=== PATIENT | male | born 1980 | race Caucasian/White ===

== ENCOUNTER 2017-06-04 13:27 | Inpatient (IN) | payer BC, OTHER ==
[2017-06-04] MEDS ORDERED: SODIUM CHLORIDE 0.9% 1,000 ML IV STA ×2 (13:34)
[2017-06-04] MEDS ORDERED: ONDANSETRON 4 MG/2 ML VIAL IVP STA (13:34)
[2017-06-04] MEDS ORDERED: SODIUM CHLORIDE 0.9% 500 ML IV STA ×2 (13:34→16:28)
[2017-06-04 13:36] LABS: Glucose,Whole Blood 148 mg/dL (75-99)
--- NOTE | 2017-06-04 13:36 | ED ---
General Adult HPI - General Chief complaint: Seizure Stated complaint: Seizure Time Seen by Provider: 06/04/17 13:34 Source: patient, family, RN notes reviewed, old records reviewed Mode of arrival: wheelchair Limitations: no limitations - History of Present Illness Initial comments: This is a 36-year-old male coming in for evaluation regarding severe alteration of mental status, possible seizure, not acting appropriately. Patient's brought in by friend who is a coworker, they work [employer], and was at work today when patient began to act this way. Otherwise patient unable to give history, other history is obtained from patient's chart - Related Data Home Medications Medication Instructions Recorded Confirmed No Known Home Medications [No 06/04/17 06/04/17 Known Home Medications] Allergies Allergy/AdvReac Type Severity Reaction Status Date / Time lactose AdvReac Nausea & Verified 06/04/17 14:22 Vomiting & Diarrhea Review of Systems ROS Statement: Those systems with pertinent positive or pertinent negative responses have been documented in the HPI. ROS Other: All systems not noted in ROS Statement are negative. Past Medical History Past Medical History: No Reported History Additional Past Medical History / Comment(s): fracture skull with hematomas, dislocated rt hip History of Any Multi-Drug Resistant Organisms: None Reported Past Surgical History: Orthopedic Surgery Additional Past Surgical History / Comment(s): clavicle repair Past Psychological History: No Psychological Hx Reported Smoking Status: Never smoker Past Alcohol Use History: None Reported Past Drug Use History: Marijuana General Exam Limitations: altered mental status General appearance: alert, appears intoxicated, anxious, in distress Head exam: Present: atraumatic, normocephalic, normal inspection Eye exam: Present: normal appearance, PERRL, EOMI. Absent: scleral icterus, conjunctival injection, periorbital swelling ENT exam: Present: mucous membranes dry Neck exam: Present: normal inspection. Absent: tenderness, meningismus, lymphadenopathy Respiratory exam: Present: normal lung sounds bilaterally. Absent: respiratory distress, wheezes, rales, rhonchi, stridor Cardiovascular Exam: Present: normal rhythm, tachycardia, normal heart sounds. Absent: systolic murmur, diastolic murmur, rubs, gallop, clicks GI/Abdominal exam: Present: soft, normal bowel sounds. Absent: distended, tenderness, guarding, rebound, rigid Extremities exam: Present: normal inspection, full ROM, normal capillary refill. Absent: tenderness, pedal edema, joint swelling, calf tenderness Back exam: Present: normal inspection Neurological exam: Present: alert, oriented X3, CN II-XII intact Psychiatric exam: Present: normal affect, normal mood Skin exam: Present: warm, dry, intact, normal color. Absent: rash Course Vital Signs 06/04/17 06/04/17 06/04/17 13:29 13:48 14:23 Temperature 97.0 F L Pulse Rate 101 H 103 H 87 Respiratory 18 18 17 Rate Blood Pressure 184/98 149/70 125/68 O2 Sat by Pulse 98 97 99 Oximetry 06/04/17 15:14 Temperature 98.2 F Pulse Rate 92 Respiratory 18 Rate Blood Pressure 112/58 O2 Sat by Pulse 99 Oximetry - Reevaluation(s) Reevaluation #1: 06/04/17 16:29 Initially patient is feeling well, recovered from seizure well alert and oriented, vital signs are improving family that bedside unable to give any influence or opinion to help case. Reevaluation #2: 06/04/17 16:30 At this point patient has had a second seizure, stopped with Ativan, patient returning to baseline. EKG Findings - EKG Comments: EKG Findings:: EKG shows sinus tachycardia rate of 109, AR 140, QRS 90, QTc 476 Medical Decision Making - Medical Decision Making 36 male here for evaluation of new-onset seizure history of traumatic brain injury, 2 seizures within a short period of time, severe altered mental status. Patient be admitted for neurological evaluation - Lab Data Result diagrams: 06/04/17 13:35 06/04/17 15:57 Lab Results 06/04/17 06/04/17 06/04/17 Range/Units 13:32 13:35 13:35 WBC (3.8-10.6) k/uL RBC (4.30-5.90) m/uL Hgb (13.0-17.5) gm/dL Hct (39.0-53.0) % MCV (80.0-100.0) fL MCH (25.0-35.0) pg MCHC (31.0-37.0) g/dL RDW (11.5-15.5) % Plt Count (150-450) k/uL Neutrophils % % Lymphocytes % % Monocytes % % Eosinophils % % Basophils % % Neutrophils # (1.3-7.7) k/uL Lymphocytes # (1.0-4.8) k/uL Monocytes # (0-1.0) k/uL Eosinophils # (0-0.7) k/uL Basophils # (0-0.2) k/uL PT (9.0-12.0) sec INR (<1.2) APTT (22.0-30.0) sec VBG pH (7.31-7.41) VBG pCO2 (37-51) mmHg VBG HCO3 (24-28) mmol/L Sodium 143 (137-145) mmol/L Potassium 4.2 (3.5-5.1) mmol/L Chloride 104 (98-107) mmol/L Carbon Dioxide 14 L (22-30) mmol/L Anion Gap 25 mmol/L BUN 16 (9-20) mg/dL Creatinine 0.93 (0.66-1.25) mg/dL Est GFR (MDRD) Af Amer >60 (>60 ml/min/1.73 sqM) Est GFR (MDRD) Non-Af >60 (>60 ml/min/1.73 sqM) Glucose 119 H (74-99) mg/dL POC Glucose (mg/dL) 148 H (75-99) mg/dL POC Glu Door Repairman ID Abran Krishnamurthy Plasma Lactic Acid Alfredo (0.7-2.0) mmol/L Calcium 9.8 (8.4-10.2) mg/dL Phosphorus 4.0 (2.5-4.5) mg/dL Magnesium 2.2 (1.6-2.3) mg/dL Total Bilirubin 0.9 (0.2-1.3) mg/dL AST 39 (17-59) U/L ALT 61 (21-72) U/L Alkaline Phosphatase 92 (38-126) U/L Total Creatine Kinase 218 H (55-170) U/L CK-MB (CK-2) 0.8 (0.0-2.4) ng/mL CK-MB (CK-2) Rel Index 0.4 Troponin I <0.012 (0.000-0.034) ng/mL Total Protein 9.3 H (6.3-8.2) g/dL Albumin 5.8 H (3.5-5.0) g/dL Lipase 63 (23-300) U/L TSH 2.100 (0.465-4.680) mIU/L Urine Color Urine Appearance (Clear) Urine pH (5.0-8.0) Ur Specific Loving (1.001-1.035) Urine Protein (Negative) Urine Glucose (UA) (Negative) Urine Ketones (Negative) Urine Blood (Negative) Urine Nitrite (Negative) Urine Bilirubin (Negative) Urine Urobilinogen (<2.0) mg/dL Ur Leukocyte Esterase (Negative) Urine WBC (0-5) /hpf Urine Bacteria (None) /hpf Urine Mucus (None) /hpf Salicylates <1.0 mg/dL Urine Opiates Screen (NotDetected) Ur Oxycodone Screen (NotDetected) Urine Methadone Screen (NotDetected) Ur Propoxyphene Screen (NotDetected) Acetaminophen <10.0 ug/mL Ur Barbiturates Screen (NotDetected) U Tricyclic Antidepress (NotDetected) Ur Phencyclidine Scrn (NotDetected) Ur Amphetamines Screen (NotDetected) U Methamphetamines Scrn (NotDetected) U Benzodiazepines Scrn (NotDetected) Urine Cocaine Screen (NotDetected) U Marijuana (THC) Screen (NotDetected) Serum Alcohol <10 mg/dL 06/04/17 06/04/17 06/04/17 Range/Units 13:35 13:35 13:35 WBC 11.3 H (3.8-10.6) k/uL RBC 5.19 (4.30-5.90) m/uL Hgb 16.6 (13.0-17.5) gm/dL Hct 48.8 (39.0-53.0) % MCV 93.9 (80.0-100.0) fL MCH 31.9 (25.0-35.0) pg MCHC 34.0 (31.0-37.0) g/dL RDW 13.8 (11.5-15.5) % Plt Count 250 (150-450) k/uL Neutrophils % 76 % Lymphocytes % 21 % Monocytes % 2 % Eosinophils % 0 % Basophils % 0 % Neutrophils # 8.5 H (1.3-7.7) k/uL Lymphocytes # 2.3 (1.0-4.8) k/uL Monocytes # 0.2 (0-1.0) k/uL Eosinophils # 0.0 (0-0.7) k/uL Basophils # 0.1 (0-0.2) k/uL PT 10.9 (9.0-12.0) sec INR 1.1 (<1.2) APTT 22.7 (22.0-30.0) sec VBG pH (7.31-7.41) VBG pCO2 (37-51) mmHg VBG HCO3 (24-28) mmol/L Sodium (137-145) mmol/L Potassium (3.5-5.1) mmol/L Chloride (98-107) mmol/L Carbon Dioxide (22-30) mmol/L Anion Gap mmol/L BUN (9-20) mg/dL Creatinine (0.66-1.25) mg/dL Est GFR (MDRD) Af Amer (>60 ml/min/1.73 sqM) Est GFR (MDRD) Non-Af (>60 ml/min/1.73 sqM) Glucose (74-99) mg/dL POC Glucose (mg/dL) (75-99) mg/dL POC Glu Door Repairman ID Plasma Lactic Acid Alfredo 11.3 H* (0.7-2.0) mmol/L Calcium (8.4-10.2) mg/dL Phosphorus (2.5-4.5) mg/dL Magnesium (1.6-2.3) mg/dL Total Bilirubin (0.2-1.3) mg/dL AST (17-59) U/L ALT (21-72) U/L Alkaline Phosphatase (38-126) U/L Total Creatine Kinase (55-170) U/L CK-MB (CK-2) (0.0-2.4) ng/mL CK-MB (CK-2) Rel Index Troponin I (0.000-0.034) ng/mL Total Protein (6.3-8.2) g/dL Albumin (3.5-5.0) g/dL Lipase (23-300) U/L TSH (0.465-4.680) mIU/L Urine Color Urine Appearance (Clear) Urine pH (5.0-8.0) Ur Specific Loving (1.001-1.035) Urine Protein (Negative) Urine Glucose (UA) (Negative) Urine Ketones (Negative) Urine Blood (Negative) Urine Nitrite (Negative) Urine Bilirubin (Negative) Urine Urobilinogen (<2.0) mg/dL Ur Leukocyte Esterase (Negative) Urine WBC (0-5) /hpf Urine Bacteria (None) /hpf Urine Mucus (None) /hpf Salicylates mg/dL Urine Opiates Screen (NotDetected) Ur Oxycodone Screen (NotDetected) Urine Methadone Screen (NotDetected) Ur Propoxyphene Screen (NotDetected) Acetaminophen ug/mL Ur Barbiturates Screen (NotDetected) U Tricyclic Antidepress (NotDetected) Ur Phencyclidine Scrn (NotDetected) Ur Amphetamines Screen (NotDetected) U Methamphetamines Scrn (NotDetected) U Benzodiazepines Scrn (NotDetected) Urine Cocaine Screen (NotDetected) U Marijuana (THC) Screen (NotDetected) Serum Alcohol mg/dL 06/04/17 06/04/17 06/04/17 Range/Units 13:35 14:26 15:57 WBC (3.8-10.6) k/uL RBC (4.30-5.90) m/uL Hgb (13.0-17.5) gm/dL Hct (39.0-53.0) % MCV (80.0-100.0) fL MCH (25.0-35.0) pg MCHC (31.0-37.0) g/dL RDW (11.5-15.5) % Plt Count (150-450) k/uL Neutrophils % % Lymphocytes % % Monocytes % % Eosinophils % % Basophils % % Neutrophils # (1.3-7.7) k/uL Lymphocytes # (1.0-4.8) k/uL Monocytes # (0-1.0) k/uL Eosinophils # (0-0.7) k/uL Basophils # (0-0.2) k/uL PT (9.0-12.0) sec INR (<1.2) APTT (22.0-30.0) sec VBG pH 7.18 L* (7.31-7.41) VBG pCO2 41 (37-51) mmHg VBG HCO3 15 L (24-28) mmol/L Sodium 140 (137-145) mmol/L Potassium 5.5 H (3.5-5.1) mmol/L Chloride 108 H (98-107) mmol/L Carbon Dioxide 21 L (22-30) mmol/L Anion Gap 11 mmol/L BUN 15 (9-20) mg/dL Creatinine 0.68 (0.66-1.25) mg/dL Est GFR (MDRD) Af Amer >60 (>60 ml/min/1.73 sqM) Est GFR (MDRD) Non-Af >60 (>60 ml/min/1.73 sqM) Glucose 91 (74-99) mg/dL POC Glucose (mg/dL) (75-99) mg/dL POC Glu Door Repairman ID Plasma Lactic Acid Alfredo (0.7-2.0) mmol/L Calcium 8.6 (8.4-10.2) mg/dL Phosphorus (2.5-4.5) mg/dL Magnesium (1.6-2.3) mg/dL Total Bilirubin 1.1 (0.2-1.3) mg/dL AST 44 (17-59) U/L ALT 49 (21-72) U/L Alkaline Phosphatase 82 (38-126) U/L Total Creatine Kinase (55-170) U/L CK-MB (CK-2) (0.0-2.4) ng/mL CK-MB (CK-2) Rel Index Troponin I (0.000-0.034) ng/mL Total Protein 7.8 (6.3-8.2) g/dL Albumin 4.8 (3.5-5.0) g/dL Lipase (23-300) U/L TSH (0.465-4.680) mIU/L Urine Color Yellow Urine Appearance Cloudy (Clear) Urine pH 5.0 (5.0-8.0) Ur Specific Loving 1.020 (1.001-1.035) Urine Protein Trace H (Negative) Urine Glucose (UA) Negative (Negative) Urine Ketones 2+ H (Negative) Urine Blood Negative (Negative) Urine Nitrite Negative (Negative) Urine Bilirubin Negative (Negative) Urine Urobilinogen <2.0 (<2.0) mg/dL Ur Leukocyte Esterase Negative (Negative) Urine WBC <1 (0-5) /hpf Urine Bacteria Rare H (None) /hpf Urine Mucus Rare H (None) /hpf Salicylates mg/dL Urine Opiates Screen Not Detected (NotDetected) Ur Oxycodone Screen Not Detected (NotDetected) Urine Methadone Screen Not Detected (NotDetected) Ur Propoxyphene Screen Not Detected (NotDetected) Acetaminophen ug/mL Ur Barbiturates Screen Not Detected (NotDetected) U Tricyclic Antidepress Not Detected (NotDetected) Ur Phencyclidine Scrn Not Detected (NotDetected) Ur Amphetamines Screen Not Detected (NotDetected) U Methamphetamines Scrn Not Detected (NotDetected) U Benzodiazepines Scrn Not Detected (NotDetected) Urine Cocaine Screen Not Detected (NotDetected) U Marijuana (THC) Screen Detected H (NotDetected) Serum Alcohol mg/dL 06/04/17 06/04/17 Range/Units 15:57 16:13 WBC (3.8-10.6) k/uL RBC (4.30-5.90) m/uL Hgb (13.0-17.5) gm/dL Hct (39.0-53.0) % MCV (80.0-100.0) fL MCH (25.0-35.0) pg MCHC (31.0-37.0) g/dL RDW (11.5-15.5) % Plt Count (150-450) k/uL Neutrophils % % Lymphocytes % % Monocytes % % Eosinophils % % Basophils % % Neutrophils # (1.3-7.7) k/uL Lymphocytes # (1.0-4.8) k/uL Monocytes # (0-1.0) k/uL Eosinophils # (0-0.7) k/uL Basophils # (0-0.2) k/uL PT (9.0-12.0) sec INR (<1.2) APTT (22.0-30.0) sec VBG pH 7.30 L (7.31-7.41) VBG pCO2 49 (37-51) mmHg VBG HCO3 24 (24-28) mmol/L Sodium (137-145) mmol/L Potassium (3.5-5.1) mmol/L Chloride (98-107) mmol/L Carbon Dioxide (22-30) mmol/L Anion Gap mmol/L BUN (9-20) mg/dL Creatinine (0.66-1.25) mg/dL Est GFR (MDRD) Af Amer (>60 ml/min/1.73 sqM) Est GFR (MDRD) Non-Af (>60 ml/min/1.73 sqM) Glucose (74-99) mg/dL POC Glucose (mg/dL) (75-99) mg/dL POC Glu Door Repairman ID Plasma Lactic Acid Alfredo 1.9 (0.7-2.0) mmol/L Calcium (8.4-10.2) mg/dL Phosphorus (2.5-4.5) mg/dL Magnesium (1.6-2.3) mg/dL Total Bilirubin (0.2-1.3) mg/dL AST (17-59) U/L ALT (21-72) U/L Alkaline Phosphatase (38-126) U/L Total Creatine Kinase (55-170) U/L CK-MB (CK-2) (0.0-2.4) ng/mL CK-MB (CK-2) Rel Index Troponin I (0.000-0.034) ng/mL Total Protein (6.3-8.2) g/dL Albumin (3.5-5.0) g/dL Lipase (23-300) U/L TSH (0.465-4.680) mIU/L Urine Color Urine Appearance (Clear) Urine pH (5.0-8.0) Ur Specific Loving (1.001-1.035) Urine Protein (Negative) Urine Glucose (UA) (Negative) Urine Ketones (Negative) Urine Blood (Negative) Urine Nitrite (Negative) Urine Bilirubin (Negative) Urine Urobilinogen (<2.0) mg/dL Ur Leukocyte Esterase (Negative) Urine WBC (0-5) /hpf Urine Bacteria (None) /hpf Urine Mucus (None) /hpf Salicylates mg/dL Urine Opiates Screen (NotDetected) Ur Oxycodone Screen (NotDetected) Urine Methadone Screen (NotDetected) Ur Propoxyphene Screen (NotDetected) Acetaminophen ug/mL Ur Barbiturates Screen (NotDetected) U Tricyclic Antidepress (NotDetected) Ur Phencyclidine Scrn (NotDetected) Ur Amphetamines Screen (NotDetected) U Methamphetamines Scrn (NotDetected) U Benzodiazepines Scrn (NotDetected) Urine Cocaine Screen (NotDetected) U Marijuana (THC) Screen (NotDetected) Serum Alcohol mg/dL - Radiology Data Radiology results: report reviewed (CT brain and C-spine soft tissue neck negative for acute disease), image reviewed Critical Care Time Critical Care Time: Yes Total Critical Care Time: 31 Disposition Clinical Impression: New onset seizure, Status epilepticus Disposition: ADMITTED IP TO THIS HOSP Condition: Fair Referrals: None,Stated [REFERRING] - 1-2 days
[2017-06-04] MEDS: LORazepam 2 MG/ML SYRINGE IV STA ×2 (13:43→16:27)
[2017-06-04 13:55] LABS: Basophils # (A) 0.1 k/uL (0-0.2); Basophils % (A) 0 %; CH 32.5; CHCM 34.8; Eosinophils % (A) 0 %; HCT 48.8 % (39.0-53.0); HDW 2.67; HGB 16.6 gm/dL (13.0-17.5); Luc # (Auto) 0.12; Luc % (Auto) 1; Lymphocytes # (A) 2.3 k/uL (1.0-4.8); Lymphocytes % (A) 21 %; MCH 31.9 pg (25.0-35.0); MCV 93.9 fL (80.0-100.0); Mean Platelet Volume 8.4; Monocytes # (A) 0.2 k/uL (0-1.0); Monocytes % (A) 2 %; Neutrophils # (A) 8.5 k/uL (1.3-7.7); Neutrophils % (A) 76 %; RBC 5.19 m/uL (4.30-5.90); RDW 13.8 % (11.5-15.5); WBC 11.3 k/uL (3.8-10.6); WBC (Perox) 10.66
[2017-06-04 13:59] LABS: VBG PH 7.18 (7.31-7.41)
[2017-06-04 14:04] LABS: ALT 61 U/L (21-72); AST 39 U/L (17-59); Acetaminophen <10.0 ug/mL; Alcohol <10 mg/dL; Alkaline Phosphatase 92 U/L (38-126); Anion Gap 25 mmol/L; Blood Urea Nitrogen 16 mg/dL (9-20); Calcium 9.8 mg/dL (8.4-10.2); Carbon Dioxide 14 mmol/L (22-30); Chloride 104 mmol/L (98-107); Glucose 119 mg/dL (74-99); Magnesium 2.2 mg/dL (1.6-2.3); Non-African American GFR(MDRD) >60 (>60 ml/min/1.73 sqM); Potassium 4.2 mmol/L (3.5-5.1); Salicylate <1.0 mg/dL; Sodium 143 mmol/L (137-145); Total Bilirubin 0.9 mg/dL (0.2-1.3); Total Protein 9.3 g/dL (6.3-8.2)
[2017-06-04 14:08] LABS: INR 1.1 (<1.2); Partial Thromboplastin Time 22.7 sec (22.0-30.0); Prothrombin Time 10.9 sec (9.0-12.0)
[2017-06-04 14:22] LABS: Creatine Kinase 218 U/L (55-170)
[2017-06-04 14:35] LABS: Creatine Kinase MB 0.8 ng/mL (0.0-2.4); Troponin I <0.012 ng/mL (0.000-0.034)
[2017-06-04 14:45] LABS: Appearance,Urine Cloudy (Clear); Bacteria,Urine Rare /hpf; Bilirubin,Urine Negative (Negative); Glucose,Urine (UA) Negative (Negative); Ketones,Urine 2+ (Negative); Leukocyte Esterase,Urine Negative (Negative); Mucus,Urine Rare /hpf; Nitrite,Urine Negative (Negative); Particle Count 2822; Protein,Urine Trace (Negative); UA Billing (MACRO vs. MICRO) MICRO; Urobilinogen,Urine <2.0 mg/dL (<2.0); WBC,Urine <1 /hpf (0-5)
--- NOTE | 2017-06-04 15:01 | CT ---
EXAMINATION TYPE: CT brain marco a pope DATE OF EXAM: 06/04/2017 COMPARISON: NONE HISTORY: 36-year-old male Seizure, CALI, jaw pain CT DLP: 1589 mGycm Automated exposure control for dose reduction was used. Technique: Examination of the head was done in axial plane without intravenous contrast. Coronal and sagittal reconstructions performed. CT of the cervical spine was obtained in axial plane without intravenous injection of contrast mater ial. Coronal and sagittal reformatted images were obtained from the axial views for evaluation of f ractures, spinal alignment and canal. FINDINGS: Head: There is no evidence of acute intracranial hemorrhage, acute ischemic changes, mass, mass-effect, or extra-axial fluid collection. There is no effacement of cerebral sulci or basal subarachnoid cister ns. There is no hydrocephalus. There is no midline shift. Samano-white matter distinction is preserv ed. Paranasal sinuses and mastoid air cells are well pneumatized. Orbits and globes are intact. Rightward nasal septal deviation. Cervical spine: No craniocervical junction amount, predental space widening, or prevertebral soft tissue swelling. Normal alignment of the cervical spine. No acute fracture Mild scattered spondylotic change. Small disc osteophyte complex at C5-C6 mildly narrows the spinal c anal. No significant neural foraminal stenosis. Old plate and screw fixation of the right clavicle. Sagittal and coronal reformatted images confirm above findings. COMBINED IMPRESSION: 1. No acute intracranial abnormality seen. 2. No acute fracture or malalignment of the cervical spine.
[2017-06-04] MEDS ORDERED: IBUPROFEN 600 MG TAB PO STA (16:02)
[2017-06-04 16:19] LABS: ALT 49 U/L (21-72); AST 44 U/L (17-59); Alkaline Phosphatase 82 U/L (38-126); Anion Gap 11 mmol/L; Blood Urea Nitrogen 15 mg/dL (9-20); Calcium 8.6 mg/dL (8.4-10.2); Carbon Dioxide 21 mmol/L (22-30); Chloride 108 mmol/L (98-107); Glucose 91 mg/dL (74-99); Non-African American GFR(MDRD) >60 (>60 ml/min/1.73 sqM); Sodium 140 mmol/L (137-145); Total Bilirubin 1.1 mg/dL (0.2-1.3); Total Protein 7.8 g/dL (6.3-8.2)
[2017-06-04 16:20] LABS: Potassium 5.5 mmol/L (3.5-5.1)
[2017-06-04 16:21] LABS: VBG PH 7.3 (7.31-7.41)
[2017-06-04] MEDS ORDERED: SODIUM CHLORIDE 0.9% 1,000 ML IV ONE ×2 (16:28)
[2017-06-04] MEDS ORDERED: LORazepam 2 MG/ML SYRINGE IV PRN (16:29)
[2017-06-04] MEDS ORDERED: LORazepam 2 MG/ML SYRINGE IV STA (16:29)
[2017-06-04] MEDS ORDERED: levETIRAcetam IV 1,000 MG in SALINE 1 100ML.BAG IVPB STA (16:31)
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
[2017-06-04] MEDS ORDERED: levETIRAcetam IV 500 MG in SODIUM CHLORIDE 0.9% 100 ML IVPB SCH (21:00)
[2017-06-05] MEDS: levETIRAcetam IV 750 MG in SODIUM CHLORIDE 0.9% 100 ML IVPB SCH ×2 (09:09→20:20)
--- NOTE | 2017-06-05 09:30 | MR ---
MR brain without contrast HISTORY: New onset structures Correlation CT brain 06/04/2017 Multiplanar multisequence imaging through the brain. There is no restricted diffusion to suggest subacute ischemia. There is no hemorrhage or hydrocephalu s. There are normal vascular flow voids. Cerebellopontine angles, corpus callosum, pituitary, cervica l medullary junction are normal. Brain signal is maintained. Orbits show symmetric appearance. Sinuse s are remarkable for minimal inflammatory change in the right maxillary sinus, ethmoid air cells. IMPRESSION: Normal noncontrast brain MRI
--- NOTE | 2017-06-05 19:01 | P.PN ---
Subjective This patient is a 36-year-old right-handed white male who was seen in neurology consultation yesterday for new onset seizure. Patient had day possible seizure at home and was brought into the emergency room yesterday at the [facility]. He had another seizure in the emergency room and was given an IV bolus of Keppra. He is subsequently admitted to hospital yesterday. He was seen in neurology consultation yesterday for further evaluation of new onset seizure. He does have a history of closed head injury in the past. This may be the cause of his recurrent spells. He has been having several episodes at work as well as previously. Exact etiology is not been defined thus far. He was sent for MRI of the brain today which is reviewed and is normal with no evidence of acute stroke or hemorrhage. There is no evidence of cerebral contusion. He had been started on Keppra yesterday and his anticonvulsant blood level is pending this morning. He underwent a routine EEG today which will be reviewed. Patient once again updated on the results of his MRI. We will review his EEG today and give these results as well. His Keppra level should be therapeutic before he is discharged home. We have recommended the patient will need anticonvulsant therapy for at least 6 months and to be closely monitored. His overall prognosis at this time remains guarded. We will continue close neurological follow-up with this patient during this admission. Objective - Vital Signs Vital signs: Vital Signs Temp 98.6 F 06/05/17 15:00 Pulse 85 06/05/17 15:00 Resp 16 06/05/17 15:00 BP 118/58 06/05/17 15:00 Pulse Ox 97 06/05/17 15:00 Intake & Output 06/04/17 06/05/17 06/05/17 18:59 06:59 18:59 Intake Total 550 Output Total 1000 Balance -450 Weight 99.79 kg Intake: Oral 550 Output: Urine 1000 Other: # Voids 1 1 - Exam Physical examination: PHYSICAL EXAMINATION: Patient is resting comfortably in bed. VITAL SIGNS: Blood pressure is [118/58]. Heart rate is [85]. Respiration is [16] . Temperature is [98.6]. HEENT: Head is atraumatic, neck is supple, there were no carotid bruits. CHEST: Lungs are clear to auscultation and percussion. CARDIAC: S1, S2 normal rate and rhythm. There is no murmur. ABDOMEN: Soft and nontender. Bowel sounds are present. EXTREMITIES: There is no pedal edema. Peripheral pulses are present. Neurological examination: Patient has a nonfocal neurological exam that is unchanged from yesterday. - Labs CBC & Chem 7: 06/04/17 13:35 06/04/17 15:57 Labs: Microbiology - Last 24 Hours (Table) 06/04/17 14:26 Urine Culture - Preliminary Urine,Voided Assessment and Plan (1) New onset seizure Status: Acute Code(s): R56.9 - UNSPECIFIED CONVULSIONS (2) Traumatic brain injury Status: Acute Code(s): S06.9X9A - UNSP INTRACRANIAL INJURY W LOC OF UNSP DURATION, INIT (3) Traumatic epidural hematoma Status: Acute Code(s): S06.4X9A - EPIDURAL HEMORRHAGE W LOC OF UNSP DURATION, INIT Plan: This patient is a 36-year-old male who was admitted to hospital yesterday after having a seizure at home. He was brought into the emergency room at [facility] for further evaluation. While in the ER he had a second seizure and was given Ativan. He was subsequently given IV bolus of Keppra and admitted to the hospital. He underwent MRI of the brain today which is reviewed and is normal with no evidence of any acute changes. He underwent a Keppra blood level this morning which is pending. We will review his EEG which was done this afternoon. We will need to await his Keppra blood level to adjust this prior to his discharge. He will need to stay on anticonvulsant therapy for at least 6 months with close monitoring. His overall prognosis at this time remains guarded.
[2017-06-06 07:44] VITALS: RESP 16
[2017-06-06] MEDS: levETIRAcetam IV 750 MG in SODIUM CHLORIDE 0.9% 100 ML IVPB SCH ×2 (08:21→21:34)
--- NOTE | 2017-06-06 09:54 | HP ---
CHIEF COMPLAINT: Possible seizure. HISTORY OF PRESENT ILLNESS: This is another admission for this 36-year-old male. He presented to the Emergency Room with possibility of seizure. He has had a head injury in the past with subdural hematoma on the left. He is not on anticonvulsants. REVIEW OF SYSTEMS: He has had no neurological changes, difficulty with vision or the hearing, chest pain, cough, hemoptysis, heart disease, murmurs, rheumatic fever, hypertension, abdominal pain, hematemesis, nausea, vomiting, diarrhea, or melena, hematochezia, jaundice, hematuria, diabetes, etc. Past medical history, family history, personal and social histories reveal that he is not allergic to any medication. He has been on Xanax, Prilosec, Zantac, and occasional Zofran. He does not smoke and denies drinking or other use of illicit drugs. PHYSICAL EXAMINATION: Blood pressure 148/70, pulse 64, respirations 12, temperature 99.1. In general, he appeared to be well developed, well nourished, in no acute distress. Skin color is normal. Skin is warm and dry. Lymph nodes are not enlarged. Head, ears, eyes, nose, mouth, and throat were normal. Neck veins were not distended. Thyroid is enlarged. Chest is clear. Cardiac exam is normal. The abdomen was soft and nontender. Extremities are normal. Neurologically he is intact, but a little bit lethargic. IMPRESSION: 1. History of skull fracture and head injury with subdural. 2. Possible grand mal seizure. PLAN: 1. Bed rest. 2. IV fluids. 3. Seizure precautions. 4. EEG. 5. CT of the brain. MARIELA
--- NOTE | 2017-06-06 09:56 | PN ---
DATE OF SERVICE: 06/05/2017 CHIEF COMPLAINT: Possible seizure. HISTORY OF PRESENT ILLNESS: This gentleman is stable and doing well and he is awake and alert. He is going down for MRI. PHYSICAL EXAM: Unchanged. IMPRESSION: 1. Possible seizure. 2. History of prior head injury with skull fracture and subdural hematoma. PLAN: Await results of further studies. MARIELA
--- NOTE | 2017-06-06 10:27 | EEG ---
INDICATIONS FOR EXAMINATION: This patient is a 36 -year-old male being evaluated for new onset seizures. AGE: 36. EEG FINDINGS: A routine 21 channel awake digital EEG recording was accomplished utilizing the 10-20 international system with bipolar and referential montages. The background activity in the most alert resting state consists of a low to medium amplitude, fairly well developed and well sustained 6-7 Hz activity over the posterior head regions. This posterior rhythm attenuates to eye opening. There is a small amount of low amplitude 18-20 Hz beta activity seen maximally over the anterior head regions. Muscle and movement artifact was observed on a few occasions during the tracing. Hyperventilation was not performed. Photic stimulation at flash frequencies of 2-30 Hz produced a minimal occipital driving response. No epileptiform discharges were seen. IMPRESSION: This EEG is mildly abnormal in a diffuse fashion due to slight slowing of the EEG background. The EEG failed to reveal any focal, lateralized or epileptiform abnormalities. Clinical correlation is recommended. MTDD
--- NOTE | 2017-06-06 15:14 | P.PN ---
Subjective This patient is a 36-year-old right-handed white male who was seen in neurology consultation yesterday for new onset seizure. Patient had day possible seizure at home and was brought into the emergency room yesterday at the [facility]. He had another seizure in the emergency room and was given an IV bolus of Keppra. He is subsequently admitted to hospital yesterday. He was seen in neurology consultation yesterday for further evaluation of new onset seizure. He does have a history of closed head injury in the past. This may be the cause of his recurrent spells. He has been having several episodes at work as well as previously. Exact etiology is not been defined thus far. He was sent for MRI of the brain today which is reviewed and is normal with no evidence of acute stroke or hemorrhage. There is no evidence of cerebral contusion. He had been started on Keppra yesterday and his anticonvulsant blood level is pending this morning. He underwent a routine EEG yesterday which was reviewed. His EEG is within normal limits for his age. There is no evidence of epileptic seizure focus. Patient once again updated on the results of his MRI. His Keppra level should be therapeutic before he is discharged home. We will order a repeat Keppra level for him at 6 AM tomorrow morning. We are still awaiting his initial blood level to return from the laboratory. As noted his MRI and EEG results are both normal. He has had no further seizure -like event since admission to the hospital. We have recommended the patient will need anticonvulsant therapy for at least 6 months and to be closely monitored. He was once again reminded of the [place] driving law which states he cannot drive in the state [facility] for 6 months following his last seizure. Patient is aware of this restriction. His overall prognosis at this time remains guarded. We will continue close neurological follow-up with this patient during this admission. Objective - Vital Signs Vital signs: Vital Signs Temp 97.4 F L 06/06/17 07:00 Pulse 69 06/06/17 07:00 Resp 16 06/06/17 07:00 BP 122/76 06/06/17 07:00 Pulse Ox 99 06/06/17 07:00 Intake & Output 06/05/17 06/06/17 06/06/17 18:59 06:59 18:59 Intake Total 500 Balance 500 Intake: Oral 500 Other: # Voids 1 2 - Exam Physical examination: PHYSICAL EXAMINATION: Patient is resting comfortably in bed. VITAL SIGNS: Blood pressure is [125/87]. Heart rate is [83]. Respiration is [16] . Temperature is [98.1]. HEENT: Head is atraumatic, neck is supple, there were no carotid bruits. CHEST: Lungs are clear to auscultation and percussion. CARDIAC: S1, S2 normal rate and rhythm. There is no murmur. ABDOMEN: Soft and nontender. Bowel sounds are present. EXTREMITIES: There is no pedal edema. Peripheral pulses are present. Neurological examination: Patient has a nonfocal neurological exam that is unchanged from yesterday. - Labs CBC & Chem 7: 06/04/17 13:35 06/04/17 15:57 Labs: Microbiology - Last 24 Hours (Table) 06/04/17 14:26 Urine Culture - Final Urine,Voided Assessment and Plan (1) New onset seizure Status: Acute Code(s): R56.9 - UNSPECIFIED CONVULSIONS (2) Traumatic brain injury Status: Acute Code(s): S06.9X9A - UNSP INTRACRANIAL INJURY W LOC OF UNSP DURATION, INIT (3) Traumatic epidural hematoma Status: Acute Code(s): S06.4X9A - EPIDURAL HEMORRHAGE W LOC OF UNSP DURATION, INIT Plan: This patient is a 36-year-old male who was admitted to hospital yesterday after having a seizure at home. He was brought into the emergency room at [facility] for further evaluation. While in the ER he had a second seizure and was given Ativan. He was subsequently given IV bolus of Keppra and admitted to the hospital. He underwent MRI of the brain today which is reviewed and is normal with no evidence of any acute changes. He also underwent routine EEG yesterday which was reviewed. His EEG is mildly slow however there is no evidence of any epileptic seizure focus. Patient is to continue on Keppra for the next 6 months. He is once again reminded of the [place] driving law which states he cannot drive in the [facility] for appeared to 6 months following his last seizure. Patient is aware of this restriction. We will have a repeat Keppra level done tomorrow morning. We are still awaiting his Keppra blood level to return from the laboratory. He is to continue on his current dose of Keppra. Depending on the AED blood levels, hopefully tomorrow morning if it is therapeutic he may be considered for discharge home. We will need to await his Keppra blood level to adjust this prior to his discharge. He will need to stay on anticonvulsant therapy for at least 6 months with close monitoring. His overall prognosis at this time remains guarded. We will continue close neurological follow-up of this patient during this admission.
[2017-06-06] MEDS: ALPRAZolam 0.25 MG TAB PO PRN (19:48)
[2017-06-07 07:26] VITALS: BP 122/78; PULSE 65; TEMP 97
[2017-06-07] MEDS: levETIRAcetam IV 750 MG in SODIUM CHLORIDE 0.9% 100 ML IVPB SCH (08:08)
[2017-06-07] MEDS: ALPRAZolam 0.25 MG TAB PO PRN (08:14)
--- NOTE | 2017-06-07 11:59 | PN ---
CHIEF COMPLAINT: Seizure disorder. HISTORY OF PRESENT ILLNESS: This gentleman is stable. He is having some trouble with anxiety. Workup continues. He has never had a seizure since his head injury. PHYSICAL EXAMINATION: He is awake and alert and neurologically intact. Chest is clear. Cardiac exam is normal. IMPRESSION: 1. Grand mal seizure disorder. 2. Previous closed head injury with subdural hematoma. 3. Anxiety. PLAN: Xanax 0.25 t.i.d. prn and await MRI results. JACQUIED
--- NOTE | 2017-06-07 19:28 | P.PN ---
Subjective This patient is a 36-year-old right-handed white male who was seen in neurology consultation yesterday for new onset seizure. Patient had day possible seizure at home and was brought into the emergency room yesterday at the [facility]. He had another seizure in the emergency room and was given an IV bolus of Keppra. He is subsequently admitted to hospital yesterday. He was seen in neurology consultation yesterday for further evaluation of new onset seizure. He does have a history of closed head injury in the past. This may be the cause of his recurrent spells. He has been having several episodes at work as well as previously. Exact etiology is not been defined thus far. He was sent for MRI of the brain today which is reviewed and is normal with no evidence of acute stroke or hemorrhage. There is no evidence of cerebral contusion. He had been started on Keppra yesterday and his anticonvulsant blood level is pending this morning. He underwent a routine EEG yesterday which was reviewed. His EEG is within normal limits for his age. There is no evidence of epileptic seizure focus. Patient once again updated on the results of his MRI. His Keppra level should be therapeutic before he is discharged home. We will order a repeat Keppra level for him at 6 AM tomorrow morning. We are still awaiting his initial blood level to return from the laboratory. As noted his MRI and EEG results are both normal. He has had no further seizure -like event since admission to the hospital. We have recommended the patient will need anticonvulsant therapy for at least 6 months and to be closely monitored. He was once again reminded of the [place] driving law which states he cannot drive in the state [facility] for 6 months following his last seizure. Patient is aware of this restriction. His overall prognosis at this time remains guarded. This patient's Keppra blood level is still pending this morning. We will await the final report and will convey this to Dr. Simental's office if there is any adjustment to be made. Patient may follow-up in the outpatient neurology clinic in 3-4 weeks for follow-up visit. We will continue close neurological follow-up with this patient during this admission. Objective - Vital Signs Vital signs: Vital Signs Temp 97.0 F L 06/07/17 07:00 Pulse 65 06/07/17 07:00 Resp 16 06/07/17 07:00 BP 122/78 06/07/17 07:00 Pulse Ox 98 06/07/17 07:00 Intake & Output 06/06/17 06/07/17 06/07/17 18:59 06:59 18:59 Other: # Voids 1 1 1 # Bowel Movements 1 - Exam Physical examination: PHYSICAL EXAMINATION: Patient is resting comfortably in bed. VITAL SIGNS: Blood pressure is [122/78]. Heart rate is [65]. Respiration is [16] . Temperature is [97.0]. HEENT: Head is atraumatic, neck is supple, there were no carotid bruits. CHEST: Lungs are clear to auscultation and percussion. CARDIAC: S1, S2 normal rate and rhythm. There is no murmur. ABDOMEN: Soft and nontender. Bowel sounds are present. EXTREMITIES: There is no pedal edema. Peripheral pulses are present. Neurological examination: Patient has a nonfocal neurological exam that is unchanged from yesterday. - Labs CBC & Chem 7: 06/04/17 13:35 06/04/17 15:57 Assessment and Plan (1) New onset seizure Status: Acute Code(s): R56.9 - UNSPECIFIED CONVULSIONS (2) Traumatic brain injury Status: Acute Code(s): S06.9X9A - UNSP INTRACRANIAL INJURY W LOC OF UNSP DURATION, INIT (3) Traumatic epidural hematoma Status: Acute Code(s): S06.4X9A - EPIDURAL HEMORRHAGE W LOC OF UNSP DURATION, INIT Plan: This patient is a 36-year-old male who was admitted to hospital yesterday after having a seizure at home. He was brought into the emergency room at [facility] for further evaluation. While in the ER he had a second seizure and was given Ativan. He was subsequently given IV bolus of Keppra and admitted to the hospital. He underwent MRI of the brain today which is reviewed and is normal with no evidence of any acute changes. He also underwent routine EEG yesterday which was reviewed. His EEG is mildly slow however there is no evidence of any epileptic seizure focus. Patient is to continue on Keppra for the next 6 months. He is once again reminded of the [place] driving law which states he cannot drive in the [facility] for appeared to 6 months following his last seizure. Patient is aware of this restriction. We will have a repeat Keppra level done tomorrow morning. We are still awaiting his Keppra blood level to return from the laboratory. He is to continue on his current dose of Keppra. Depending on the AED blood levels, hopefully tomorrow morning if it is therapeutic he may be considered for discharge home. We will need to await his Keppra blood level to adjust this prior to his discharge. His Keppra blood level is still pending today. Laboratory indicates it may take another day or 2. Patient is being discharged to home today. He should follow-up with Dr. Simental's office or our office in terms of the final Keppra blood level. He is to continue on his current dose of Keppra. He is once again reminded of the [place] driving law which states he cannot drive for appeared of 6 months following this last seizure. He may follow-up in the outpatient neurology clinic in 3-4 weeks. He will need to stay on anticonvulsant therapy for at least 6 months with close monitoring. His overall prognosis at this time remains guarded. We will continue close neurological follow-up of this patient during this admission.
--- NOTE | 2017-06-08 08:58 | DS ---
CHIEF COMPLAINT: Grand mal seizure disorder. HISTORY OF PRESENT ILLNESS AND PHYSICAL EXAM: Details of this man's history and physical can be found in the initial workup. LABORATORY STUDIES: While he was in the hospital he had laboratory studies, details of which can be found in the laboratory section of his chart. COURSE IN THE HOSPITAL: After admission he was placed at bed rest and started on intravenous fluids and seizure precautions. He was seen by Neurology. CT was unremarkable. He was started on Keppra and is doing well and felt he could be discharged on the and he will go home on Keppra 850 mg twice a day and will be seen in the office in one day. FINAL DIAGNOSES: 1. Grand mal seizure disorder. 2. Previous head injury with subdural hematoma. OPERATIONS: None. CONSULTATIONS: None. He was informed about not operating heavy equipment or motor vehicle for 6 months. MARIELA
== END 2017-06-07 13:58 | disposition home or self-care (01) | DRG 101 ==
LOC: EC 13:27 → SUPCPDRO 13:27 → 4MS4W 16:29
PROVIDERS: ADMIT Family Medicine; ATTEND Family Medicine
DX: G40.409 Other generalized epilepsy and epileptic syndromes, not intractable, without status epilepticus (principal); F41.9 Anxiety disorder, unspecified; Z87.820 Personal history of traumatic brain injury
CPT/HCPCS: 36415; 70450; 70551; 72125; 80053; 80177; 80306; 80320; 81001; 82550; 82553; 82803; 83520; 83605; 83690; 83735; 84100; 84443; 84484; 85025; 85610; 85730; 87086; 93005; 95819; 96360; 96361; 96374; 96375; 99291

== ENCOUNTER 2017-07-11 14:14 | Emergency (ER) | payer OTHER ==
[2017-07-11 14:49] VITALS: RESP 20
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
--- NOTE | 2017-07-11 15:22 | XR ---
EXAMINATION TYPE: XR foot complete RT DATE OF EXAM: 07/11/2017 COMPARISON: NONE HISTORY: Pain twisting injury TECHNIQUE: Three-view right foot FINDINGS: No acute fractures are evident. Joint spaces are preserved. Soft tissues foot appear normal . IMPRESSION: 1. Normal three-view right foot. 2. Follow-up exam can be performed 7-10 days from acute trauma for continued pain.
--- NOTE | 2017-07-11 15:22 | XR ---
EXAMINATION TYPE: XR tibia fibula RT DATE OF EXAM: 07/11/2017 COMPARISON: NONE HISTORY: Pain twisting injury TECHNIQUE: 2 view right tibia and fibula FINDINGS: Soft tissue swelling is over the ankle diffusely slightly greater along the lateral aspect. The knee joint space appears unremarkable. Tibia and fibula appear intact. IMPRESSION: 1. No acute osseous abnormality. 2. Soft tissue swelling about the ankle
[2017-07-11 15:58] VITALS: BP 141/66; PULSE 100; TEMP 98.5
== END 2017-07-11 15:58 | disposition home or self-care (01) ==
LOC: EC 14:14
DX: S93.401A Sprain of unspecified ligament of right ankle, initial encounter (principal); Z91.011 Allergy to milk products; Z79.899 Other long term (current) drug therapy; G40.909 Epilepsy, unspecified, not intractable, without status epilepticus; Z98.890 Other specified postprocedural states; W10.9XXA Fall (on) (from) unspecified stairs and steps, initial encounter
CPT/HCPCS: 99284

== ENCOUNTER 2020-12-17 21:26 | Emergency (ER) | payer OTHER ==
[2020-12-17 21:38] VITALS: BP 164/94; PULSE 73; RESP 18; TEMP 99.9
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
== END 2020-12-17 22:30 | disposition home or self-care (01) ==
LOC: EC 21:26
DX: S01.512A Laceration without foreign body of oral cavity, initial encounter (principal); G40.909 Epilepsy, unspecified, not intractable, without status epilepticus; F17.200 Nicotine dependence, unspecified, uncomplicated; Z79.899 Other long term (current) drug therapy; Z91.048 Other nonmedicinal substance allergy status; W19.XXXA Unspecified fall, initial encounter
CPT/HCPCS: 99282

== ENCOUNTER 2021-09-25 15:15 | Emergency (ER) | payer BC, OTHER ==
[2021-09-25 17:33] VITALS: PULSE 78; TEMP 97.2
[2021-09-25 18:04] LABS: Appearance,Urine Clear (Clear); Bilirubin,Urine Negative (Negative); Blood,Urine Negative (Negative); Color,Urine Yellow; Glucose,Urine (UA) Negative (Negative); Ketones,Urine Trace (Negative); Leukocyte Esterase,Urine Negative (Negative); Nitrite,Urine Negative (Negative); Protein,Urine Trace (Negative); Specific Gravity,Urine 1.028 (1.001-1.035); Urobilinogen,Urine <2.0 mg/dL (<2.0)
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
[2021-09-25 18:37] LABS: Basophils # (A) 0.1 k/uL (0-0.2); Basophils % (A) 1 %; Eosinophils # (A) 0.3 k/uL (0-0.7); Eosinophils % (A) 4 %; HCT 45.1 % (39.0-53.0); HGB 16.2 gm/dL (13.0-17.5); Hyperchromasia Slight; Lymphocytes # (A) 2.5 k/uL (1.0-4.8); Lymphocytes % (A) 38 %; MCH 32.9 pg (25.0-35.0); MCV 91.6 fL (80.0-100.0); Mean Platelet Volume 9.3; Monocytes # (A) 0.3 k/uL (0-1.0); Monocytes % (A) 5 %; Neutrophils # (A) 3.2 k/uL (1.3-7.7); Neutrophils % (A) 49 %; Platelet Count 239 k/uL (150-450); RBC 4.92 m/uL (4.30-5.90); RDW 13.1 % (11.5-15.5); WBC 6.4 k/uL (3.8-10.6)
[2021-09-25 18:50] LABS: ALT 79 U/L (4-49); AST 56 U/L (17-59); African American GFR (CKD) >90 (>60 ml/min/1.73 sqM); Albumin 4.7 g/dL (3.5-5.0); Alkaline Phosphatase 103 U/L (38-126); Anion Gap 9 mmol/L; Blood Urea Nitrogen 14 mg/dL (9-20); Calcium 9.6 mg/dL (8.4-10.2); Carbon Dioxide 25 mmol/L (22-30); Chloride 105 mmol/L (98-107); Glucose 99 mg/dL (74-99); Non-African American GFR(CKD) >90 (>60 ml/min/1.73 sqM); Sodium 139 mmol/L (137-145); Total Bilirubin 0.6 mg/dL (0.2-1.3); Total Protein 7.7 g/dL (6.3-8.2)
--- NOTE | 2021-09-25 19:12 | CT ---
EXAMINATION TYPE: CT abdomen pelvis w con DATE OF EXAM: 09/25/2021 COMPARISON: 08/20/2016 HISTORY: h/o left flank pain x1 week CT DLP: 1729.6 mGycm Automated exposure control for dose reduction was used. TECHNIQUE: Helical acquisition of images was performed from the lung bases through the pelvis. CONTRAST: Performed without Oral Contrast and with IV Contrast, patient injected with 100 mL of Isovue 300. FINDINGS: LUNG BASES: Normal. LIVER: Geographic changes of fatty liver. BILIARY SYSTEM: Normal. PANCREAS: Normal. SPLEEN: Normal. ADRENALS: Normal. KIDNEYS: Normal. BOWEL: No obstruction or thickening. Colonic diverticulosis. No acute diverticulitis. Normal appendi x. PERITONEUM: No pneumoperitoneum. No free fluid. LYMPH NODES: No lymphadenopathy. PELVIS: Normal. VASCULATURE: No abdominal aortic aneurysm. MUSCULOSKELETAL: Degenerative changes of the spine. IMPRESSION: 1. No acute findings to explain patient's left flank pain. 2. Fatty liver. 3. Colonic diverticulosis. No acute diverticulitis.
[2021-09-25 19:59] VITALS: BP 132/71; RESP 16
== END 2021-09-25 19:58 | disposition home or self-care (01) ==
LOC: EC 15:15
DX: R10.9 Unspecified abdominal pain (principal); G40.909 Epilepsy, unspecified, not intractable, without status epilepticus; F12.90 Cannabis use, unspecified, uncomplicated; Z79.899 Other long term (current) drug therapy
CPT/HCPCS: 36415; 80053; 85025; 81003; 74177; 99284; Q9967

== ENCOUNTER 2024-07-09 12:30 | Inpatient (IN) | payer SELFPAY ==
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
[2024-07-09 13:28] LABS: Basophils % (A) 0 %; Eosinophils # (A) 0.1 k/uL (0-0.7); Eosinophils % (A) 1 %; HCT 43.9 % (39.0-53.0); HGB 15.3 gm/dL (13.0-17.5); Lymphocytes # (A) 1.2 k/uL (1.0-4.8); Lymphocytes % (A) 8 %; MCH 32.2 pg (25.0-35.0); MCHC 34.9 g/dL (31.0-37.0); MCV 92.2 fL (80.0-100.0); Mean Platelet Volume 9.4; Monocytes # (A) 0.4 k/uL (0-1.0); Monocytes % (A) 3 %; Neutrophils # (A) 12.1 k/uL (1.3-7.7); Neutrophils % (A) 87 %; Platelet Count 195 k/uL (150-450); RBC 4.77 m/uL (4.30-5.90); RDW 12.7 % (11.5-15.5); WBC 13.9 k/uL (3.8-10.6)
[2024-07-09] MEDS: SODIUM CHLORIDE 0.9% 1,000 ML IV STA (13:33)
[2024-07-09] MEDS: MORPHINE SULFATE 4 MG/ML SYRINGE IV STA (13:36)
[2024-07-09 13:43] LABS: ALT 43 U/L (4-49); AST 33 U/L (17-59); African American GFR (CKD) >90 (>60 ml/min/1.73 sqM); Albumin 4.4 g/dL (3.5-5.0); Alkaline Phosphatase 111 U/L (38-126); Anion Gap 7 mmol/L; Blood Urea Nitrogen 12 mg/dL (9-20); Calcium 9.2 mg/dL (8.4-10.2); Carbon Dioxide 24 mmol/L (22-30); Chloride 104 mmol/L (98-107); Glucose 139 mg/dL (74-99); Lipase 32 U/L (23-300); Non-African American GFR(CKD) >90 (>60 ml/min/1.73 sqM); Potassium 3.9 mmol/L (3.5-5.1); Sodium 135 mmol/L (137-145); Total Bilirubin 1.6 mg/dL (0.2-1.3); Total Protein 7.3 g/dL (6.3-8.2)
[2024-07-09 13:49] LABS: INR 0.9 (<1.2); Partial Thromboplastin Time 26.7 sec (22.0-30.0); Prothrombin Time 10.4 sec (10.0-12.5)
--- NOTE | 2024-07-09 14:24 | CT ---
EXAMINATION TYPE: CT abdomen pelvis w con CT DLP: 1380.9 mGycm, Automated exposure control for dose reduction was used. DATE OF EXAM: 07/09/2024 2:01 PM COMPARISON: CT abdomen pelvis most recent from 09/25/2021 CLINICAL INDICATION: Male, 43 years old with history of llq pain; llq PAIN TECHNIQUE: Axial CT abdomen pelvis w con;Sagittal and coronal reformats were created on a separate w orkstation. Contrast used:100 mL of Isovue 300 with IV Contrast, (none if empty) Oral contrast used: without Oral Contrast (none if empty) FINDINGS: LOWER CHEST: Unremarkable ABDOMEN LIVER: Unremarkable GALLBLADDER AND BILE DUCTS: Unremarkable. PANCREAS: Unremarkable. SPLEEN: Unremarkable. ADRENAL GLANDS: Unremarkable. KIDNEYS AND URETERS: No evidence of hydronephrosis or renal calculus. The ureters are unremarkable. PELVIS BLADDER: Unremarkable REPRODUCTIVE: Unremarkable. ABDOMEN & PELVIS STOMACH AND BOWEL: There are colonic diverticula present with extensive fat stranding changes and cer vical vertebral wall thickening of the sigmoid colon. There is evidence of perforation with pneumoper itoneum outside the bowel series 201 image 77.. No evidence of bowel obstruction. The appendix is nor mal. PERITONEUM/RETROPERITONEUM: No evidence of pneumoperitoneum or free fluid. VASCULATURE: No evidence of aortic aneurysm. MUSCULOSKELETAL: No acute osseous abnormalities LYMPH NODES: No gross evidence for lymphadenopathy. SOFT TISSUE/ABDOMINAL WALL: Unremarkable IMPRESSION: Complicated Sigmoid diverticulitis/colitis with perforation, multiple foci of gas are seen outside th e lumen of the bowel. No organizing fluid collection is present. Surgical consultation recommended. Findings communicated to Dr. Ovidio Diaz DO on 07/09/2024 2:[address] Giorgio Rosario.
[2024-07-09] MEDS ORDERED: NALOXONE 0.4 MG/ML 1 ML VIAL IV PRN (14:26)
[2024-07-09] MEDS ORDERED: ONDANSETRON 4 MG/2 ML VIAL IVP PRN (14:26)
[2024-07-09] MEDS: MORPHINE SULFATE 4 MG/ML SYRINGE IV PRN (15:56)
[2024-07-09] MEDS: SODIUM CHLORIDE 0.9% 1,000 ML IV SCH (15:57)
[2024-07-09] MEDS: PIPERACILLIN-TAZOBACTAM 3.375 GM in SODIUM CHLORIDE 0.9% 100 ML IVPB SCH ×2 (15:57→23:24)
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
[2024-07-09] MEDS: KETOROLAC 15 MG/ML 1 ML VIAL IVP SCH (23:24)
--- NOTE | 2024-07-10 12:50 | P.PN ---
Subjective Patient seen and evaluated at bedside. Patient complaining of left lower quadrant, but denies nausea or vomiting. Objective - Vital Signs Vital signs: Vital Signs Temp 98.2 F 07/10/24 07:07 Pulse 84 07/10/24 08:00 Resp 18 07/10/24 08:00 BP 104/67 07/10/24 07:07 Pulse Ox 99 07/10/24 07:07 FiO2 Intake & Output 07/09/24 07/10/24 07/10/24 18:59 06:59 18:59 Intake Total 260 Balance 260 Weight 108.862 kg Intake: Intake, IV Titration 260 Amount Sodium Chloride 0.9% 1, 260 000 ml @ 130 mls/hr IV . Q7H42M [facility] Rx#:[id number] Other: Voiding Method Toilet Toilet # Voids 2 - Exam gen: nad cv: rrr pul: non labored breathing abd: soft, non distended but tender in the left lower quadrant, not peritoneal - Labs CBC & Chem 7: 07/09/24 12:55 07/09/24 12:55 Labs: Abnormal Lab Results - Last 24 Hours (Table) 07/09/24 07/09/24 Range/Units 12:55 12:55 WBC 13.9 H (3.8-10.6) k/uL Neutrophils # 12.1 H (1.3-7.7) k/uL Sodium 135 L (137-145) mmol/L Glucose 139 H (74-99) mg/dL Total Bilirubin 1.6 H (0.2-1.3) mg/dL Assessment and Plan Assessment: 43-year-old male with acute diverticulitis, localized perforation. I discussed with the patient the options of medical management with IV antibiotics versus surgical management. At this point, with no signs of sepsis and localized perforation, it is reasonable to begin treatment with medical management with IV antibiotics and bowel rest. He is aware that based on current CT findings that he is at risk of developing an abscess that may need to be treated with intervention. We will continue to follow and make recommendations based on the patient's clinical progress. -we will give patient another 12-24hrs of bowel rest with IV abx, re-eval in am for possible advancement to clear liquid diet
[2024-07-11 11:46] LABS: Basophils % (A) 1 %; Eosinophils # (A) 0.2 k/uL (0-0.7); Eosinophils % (A) 4 %; HCT 39.2 % (39.0-53.0); HGB 13.3 gm/dL (13.0-17.5); Lymphocytes # (A) 1.4 k/uL (1.0-4.8); Lymphocytes % (A) 24 %; MCV 94.1 fL (80.0-100.0); Mean Platelet Volume 9.1; Monocytes # (A) 0.3 k/uL (0-1.0); Monocytes % (A) 5 %; Neutrophils # (A) 3.7 k/uL (1.3-7.7); Neutrophils % (A) 65 %; Platelet Count 227 k/uL (150-450); RBC 4.16 m/uL (4.30-5.90); RDW 12.2 % (11.5-15.5); WBC 5.7 k/uL (3.8-10.6)
[2024-07-11 12:00] LABS: African American GFR (CKD) >90 (>60 ml/min/1.73 sqM); Anion Gap 5 mmol/L; Blood Urea Nitrogen 13 mg/dL (9-20); Calcium 8.6 mg/dL (8.4-10.2); Carbon Dioxide 25 mmol/L (22-30); Chloride 109 mmol/L (98-107); Glucose 82 mg/dL (74-99); Non-African American GFR(CKD) >90 (>60 ml/min/1.73 sqM); Sodium 139 mmol/L (137-145)
--- NOTE | 2024-07-11 13:00 | P.PN ---
Progress Note - Text Progress Note Date: 07/11/24 TAE. Abdominal Pain has improved. Denies N/V. He is passing gas. VSS General-NAD Abdomen-soft, ND, minimal left sided abdominal tenderness 43-year-old male with acute diverticulitis, localized perforation. -Advanced to CLD -Zosyn -AM labs pending -Pain and Nausea Control Javier Silver DO [facility] [phone]
--- NOTE | 2024-07-12 14:43 | P.PN ---
Subjective Progress Note Date: 07/12/24 CHIEF COMPLAINT: perforated diverticulitis HISTORY OF PRESENT ILLNESS: patient reports he is feeling better since admission. He reports his pain about a 0-1. Denies any nausea or vomiting. Did have a soft bowel movement today. Afebrile. Last WBC is 5.7. Tolerating clear liquids. PHYSICAL EXAM: VITAL SIGNS: Reviewed. GENERAL: Well-developed in no acute distress. ABDOMEN: Soft. Nondistended. Nontender. NEUROLOGIC: Alert and oriented. Cranial nerves II through XII grossly intact. ASSESSMENT: 1. perforated diverticulitis PLAN: -continue clear liquid diet for now -Encourage patient to increase activity level -continue antibiotics -Continue IV fluid Physician Driver [employer] note has been reviewed by physician. Signing provider agrees with the documented findings, assessment, and plan of care. Objective - Vital Signs Vital signs: Vital Signs Temp 98.2 F 07/12/24 12:16 Pulse 70 07/12/24 12:16 Resp 17 07/12/24 12:16 BP 134/88 07/12/24 12:16 Pulse Ox 100 07/12/24 12:16 FiO2 Intake & Output 07/11/24 07/12/24 07/12/24 18:59 06:59 18:59 Intake Total 500 450 Balance 500 450 Intake: Oral 500 450 Other: Voiding Method Toilet # Voids 6 # Bowel Movements 1 - Labs CBC & Chem 7: 07/11/24 11:32 07/11/24 11:32
--- NOTE | 2024-07-13 11:50 | P.PN ---
Progress Note - Text Progress Note Date: 07/13/24 CHIEF COMPLAINT: perforated diverticulitis HISTORY OF PRESENT ILLNESS: NAEO. Patient is doing well. Tolerating diet. PHYSICAL EXAM: VITAL SIGNS: Reviewed. GENERAL: Well-developed in no acute distress. ABDOMEN: Soft. Nondistended. Nontender. NEUROLOGIC: Alert and oriented. Cranial nerves II through XII grossly intact. ASSESSMENT: 1. perforated diverticulitis PLAN: -Low Fat Diet -Encourage patient to increase activity level -continue antibiotics -Continue IV fluid
[2024-07-13] MEDS: PIPERACILLIN-TAZOBACTAM 3.375 GM in SODIUM CHLORIDE 0.9% 100 ML IVPB SCH (20:46)
[2024-07-14 07:45] VITALS: BP 121/71; PULSE 52; RESP 16; TEMP 97.9
[2024-07-14 09:16] LABS: Basophils # (A) 0.05 X 10*3/uL (0.00-0.10); Basophils % (A) 0.8 %; Eosinophils # (A) 0.23 X 10*3/uL (0.04-0.35); Eosinophils % (A) 3.8 %; HCT 39.1 % (39.6-50.0); HGB 13.4 g/dL (13.0-17.0); Lymphocytes # (A) 1.96 X 10*3/uL (0.90-5.00); Lymphocytes % (A) 32.6 %; MCH 32.1 pg (27.0-32.0); MCHC 34.3 g/dL (32.0-37.0); MCV 93.5 FL (80.0-97.0); Mean Platelet Volume 11.8 FL (9.5-12.2); Monocytes % (A) 6.7 %; NRBC Per 100 WBC 0 X 10*3/uL (0.00-0.01); Neutrophils # (A) 3.35 X 10*3/uL (1.80-7.70); Neutrophils % (A) 55.8 %; Platelet Count 228 X 10*3/uL (140-440); RBC 4.18 X 10*6/uL (4.40-5.60); RDW 12.2 % (11.5-14.5); WBC 6.01 X 10*3/uL (4.50-10.00)
[2024-07-14 09:19] LABS: BUN/Creat Ratio 7.11 Ratio (12.00-20.00); Blood Urea Nitrogen 6.4 mg/dL (9.0-27.0); Calcium 8.3 mg/dL (8.7-10.3); Carbon Dioxide 23.4 mmol/L (21.6-31.8); Chloride 107 mmol/L (96-109); Glucose 127 mg/dL (70-110); Potassium 4.3 mmol/L (3.5-5.5); Sodium 141 mmol/L (135-145)
[2024-07-14 09:21] VITALS: BMI 32.5
--- NOTE | 2024-07-14 10:39 | P.DS ---
Providers Date of admission: 07/09/24 14:26 Expected date of discharge: 07/14/24 Attending physician: Tiffanie Magana DO Primary care physician: Stated None Hospital Course: Discharge diagnosis 1. Perforated sigmoid diverticulitis Hospital course This is a 43-year-old male who presented with left lower quadrant abdominal pain with CT scan of abdomen reporting concerns for localized perforation of diverticulitis. Patient was started on IV antibiotics. He was managed conservatively. He is tolerated advancement of diet. His white count has normalized. Patient is having bowel movements. He did report a small amount of blood in his stool. Surgeon has been notified and aware. And is cleared him for discharge. Hemoglobin is stable. Vitals are stable. Afebrile. He is ambulating. Patient denies any abdominal pain. He is stable for discharge. Please refer to chart for any further details. Physician Supervisor [employer] note has been reviewed by physician. Signing provider agrees with the documented findings, assessment, and plan of care. Patient Condition at Discharge: Stable Plan - Discharge Summary Discharge Rx Participant: Yes New Discharge Prescriptions: New Amoxic-Pot Clav 875-125Mg [Augmentin 875-125] 1 tab PO Q12HR 10 Days #20 tab Discharge Medication List Amoxic-Pot Clav 875-125Mg [Augmentin 875-125] 1 tab PO Q12HR 10 Days #20 tab 07/14/24 [Rx] Follow up Appointment(s)/Referral(s): None,Stated [Primary Care Provider] - 1-2 days Javier Silver DO [Medical Doctor] - 1 Week Activity/Diet/Wound Care/Special Instructions: continue a low fiber and low fat diet Discharge Disposition: HOME SELF-CARE
== END 2024-07-14 12:07 | disposition home or self-care (01) | DRG 378 ==
LOC: EC 12:30 → 4SSUR 14:26
PROVIDERS: ADMIT Surgery; ATTEND Surgery
DX: K57.21 Diverticulitis of large intestine with perforation and abscess with bleeding (principal); K51.911 Ulcerative colitis, unspecified with rectal bleeding; G40.909 Epilepsy, unspecified, not intractable, without status epilepticus; Z87.81 Personal history of (healed) traumatic fracture
CPT/HCPCS: 36415; 74177; 80048; 80053; 83690; 85025; 85610; 85730; 96361; 96365; 96375; 96376; 99285